=== PATIENT | female | born 1940 | race Caucasian/White ===

== ENCOUNTER → 2017-05-26 | Outpatient (CLI) | payer MEDICARE ==
[~2017-05-26] MED LIST: ASPI81CH PO; ATOR20 PO; ATOR40TA PO; DIPATR PO; FURO20 PO; META800 PO; METO50 PO; NITR.4SL SL; OMEP40CA12 PO; Omeprazole20 M1 PO; SERT100 PO; TRAM50 PO; Zofran Odt4 MG PO
== END ==
LOC: LAB EV 17:00
DX: L02.31 Cutaneous abscess of buttock (principal)
CPT/HCPCS: 87070; 87205

== ENCOUNTER 2017-06-05 05:44 | Observation (INO) | payer MEDICARE ==
[~2017-06-05] VITALS: Ht 177.8 cm; Wt 88.6 kg
[~2017-06-05 05:44] MED LIST changes: -ATOR40TA PO; -Omeprazole20 M1 PO
[2017-06-05 06:18] LABS: BASOPHILS ABSOLUTE AUTO 0.09 K/mm3 (0.00-0.23); BASOPHILS PERCENT AUTO 1 % (0-2); EOSINOPHILS ABSOLUTE AUTO 0.45 K/mm3 (0.00-0.68); EOSINOPHILS PERCENT AUTO 3 % (0-6); Hematocrit 40.6 % (33.0-51.0); Hemoglobin 13.4 g/dL (11.5-16.0); IMMATURE GRAN ABSOLUTE AUTO 0.04 K/mm3 (0.00-0.10); IMMATURE GRAN PERCENT AUTO 0 % (0-1); LYMPHOCYTES ABSOLUTE AUTO 2.48 K/mm3 (0.84-5.20); LYMPHOCYTES PERCENT AUTO 17 % (21-46); MONOCYTES ABSOLUTE AUTO 0.86 K/mm3 (0.16-1.47); MONOCYTES PERCENT AUTO 6 % (4-13); Mean Corpuscular HGB 29.8 pg (26.0-34.0); Mean Corpuscular Volume 90 fL (80-100); Mean Platelet Volume 10.5 fL (9.1-12.4); NEUTROPHILS ABSOLUTE AUTO 10.43 K/mm3 (1.96-9.15); NEUTROPHILS PERCENT AUTO 73 % (41-73); Platelet Count 268 K/mm3 (150-400); RDW Coefficient Variation 14.4 % (11.7-14.2); RDW Standard Deviation 47.8 fL (35.1-46.3); Red Blood Cell Count 4.49 M/mm3 (3.80-5.20); White Blood Cell Count 14.35 K/mm3 (4.00-11.30)
[2017-06-05 06:40] LABS: Alanine Aminotransfer (ALT/SGP 18 U/L (12-78); Albumin, Blood 2.8 g/dL (3.4-5.0); Albumin/Globulin Ratio 0.8 (0.8-1.8); Alk Phos 80 U/L (50-136); Anion Gap 6 mmol/L (6-16); Aspartate Aminotrans (AST/SGOT 20 U/L (12-37); Bilirubin, Total 0.4 mg/dL (0.1-1.0); Blood Urea Nitrogen 9 mg/dL (8-24); Bun/Creatinine Ratio 10.6 (12.0-20.0); CO2, Blood 26 mmol/L (21-32); Calcium, Blood 8.2 mg/dL (8.5-10.1); Chloride, Blood 111 mmol/L (98-108); Creatinine, Blood 0.85 mg/dL (0.40-1.00); Globulin, Blood 3.4 g/dL (2.2-4.0); Glomerular Filtration Rate >60 (60-); Glucose, Blood 103 mg/dL (70-99); Potassium, Blood 3.6 mmol/L (3.5-5.5); Sodium, Blood 143 mmol/L (136-145); Total Protein, Blood 6.2 g/dL (6.4-8.2); Troponin I <0.015 ng/mL (0.000-0.040)
[2017-06-05] MEDS ORDERED: FURO20 PO (06:59)
[2017-06-05] MEDS ORDERED: METO50 PO (07:01)
[2017-06-05] MEDS ORDERED: Omeprazole20 M1 PO (07:01)
[2017-06-05] MEDS ORDERED: TRAM50 PO (07:02)
[2017-06-06 05:09] LABS: BASOPHILS ABSOLUTE AUTO 0.06 K/mm3 (0.00-0.23); BASOPHILS PERCENT AUTO 1 % (0-2); EOSINOPHILS ABSOLUTE AUTO 0.17 K/mm3 (0.00-0.68); EOSINOPHILS PERCENT AUTO 2 % (0-6); Hematocrit 37.2 % (33.0-51.0); Hemoglobin 12.4 g/dL (11.5-16.0); IMMATURE GRAN ABSOLUTE AUTO 0.02 K/mm3 (0.00-0.10); IMMATURE GRAN PERCENT AUTO 0 % (0-1); LYMPHOCYTES ABSOLUTE AUTO 2.46 K/mm3 (0.84-5.20); LYMPHOCYTES PERCENT AUTO 33 % (21-46); MONOCYTES PERCENT AUTO 11 % (4-13); Mean Corpuscular HGB 29.8 pg (26.0-34.0); Mean Corpuscular HGB Conc 33.3 g/dL (31.5-36.5); Mean Corpuscular Volume 89 fL (80-100); Mean Platelet Volume 10.6 fL (9.1-12.4); NEUTROPHILS ABSOLUTE AUTO 3.97 K/mm3 (1.96-9.15); NEUTROPHILS PERCENT AUTO 53 % (41-73); Platelet Count 219 K/mm3 (150-400); RDW Coefficient Variation 14.3 % (11.7-14.2); RDW Standard Deviation 46.5 fL (35.1-46.3); Red Blood Cell Count 4.16 M/mm3 (3.80-5.20); White Blood Cell Count 7.48 K/mm3 (4.00-11.30)
[2017-06-06 06:10] LABS: Anion Gap 8 mmol/L (6-16); Blood Urea Nitrogen 10 mg/dL (8-24); Bun/Creatinine Ratio 12.7 (12.0-20.0); CO2, Blood 25 mmol/L (21-32); Chloride, Blood 112 mmol/L (98-108); Creatinine, Blood 0.79 mg/dL (0.40-1.00); Glomerular Filtration Rate >60 (60-); Glucose, Blood 90 mg/dL (70-99); Potassium, Blood 3.5 mmol/L (3.5-5.5); Sodium, Blood 145 mmol/L (136-145)
[2017-06-07] MEDS ORDERED: ASPI81CH PO (17:12)
[2017-06-07] MEDS ORDERED: ATOR40TA PO (17:14)
== END 2017-06-07 18:00 | disposition home or self-care (01) ==
LOC: ER 05:44 → MEDS 05:45 → ENPENDDIS 06-07 10:17 → MEDS 06-07 18:00
PROVIDERS: Emergency Medicine; Internal Medicine
DX: R07.9 Chest pain, unspecified (principal); I25.10 Atherosclerotic heart disease of native coronary artery without angina pectoris; F32.9 Major depressive disorder, single episode, unspecified; I50.30 Unspecified diastolic (congestive) heart failure; K21.9 Gastro-esophageal reflux disease without esophagitis; Z90.710 Acquired absence of both cervix and uterus; Z85.22 Personal history of malignant neoplasm of nasal cavities, middle ear, and accessory sinuses; Z90.49 Acquired absence of other specified parts of digestive tract; Z91.040 Latex allergy status; Z88.0 Allergy status to penicillin; Z88.2 Allergy status to sulfonamides; Z88.8 Allergy status to other drugs, medicaments and biological substances; Z79.899 Other long term (current) drug therapy; Z79.891 Long term (current) use of opiate analgesic
CPT/HCPCS: 36415; 71046; 78452; 80048; 80053; 83880; 84484; 85025; 93005; 93010; 93017; 96372; 96374; 96376; 99285; A9500; C9113; G0378; J0280; J1650; J2785

== ENCOUNTER → 2017-06-12 | Outpatient (CLI) | payer MEDICARE ==
[~2017-06-12] MED LIST changes: +ATOR40TA PO; +Omeprazole20 M1 PO
== END ==
LOC: PLD → LAB SHORT
DX: D48.5 Neoplasm of uncertain behavior of skin (principal)
CPT/HCPCS: 88305

== ENCOUNTER → 2019-01-22 | Outpatient (CLI) | payer MEDICARE | END | disposition home or self-care (01) | LOC: LAB SHORT 10:34 → LAB 10:34 | DX: L02.31 Cutaneous abscess of buttock (principal) | CPT/HCPCS: 87070; 87077; 87205 ==

== ENCOUNTER → 2019-03-13 | Outpatient (CLI) | payer MEDICARE | END | disposition home or self-care (01) | LOC: PLD 08:40 → LAB SHORT 08:40 | DX: D48.5 Neoplasm of uncertain behavior of skin (principal) | CPT/HCPCS: 88305 ==

== ENCOUNTER → 2019-06-27 | Outpatient (CLI) | payer MEDICARE | LOC: LAB EV 11:00 | DX: R31.21 Asymptomatic microscopic hematuria (principal); R30.0 Dysuria | CPT/HCPCS: 87077; 87086; 87186 ==

== ENCOUNTER → 2019-12-31 | Outpatient (CLI) | payer MEDICARE, OTHER | END | disposition home or self-care (01) | LOC: LAB SHORT 15:35 → LAB EV 15:35 | DX: J06.9 Acute upper respiratory infection, unspecified (principal); Z20.828 Contact with and (suspected) exposure to other viral communicable diseases | CPT/HCPCS: U0003 ==

== ENCOUNTER → 2020-10-28 | Outpatient (CLI) | payer MEDICARE ==
[2020-10-28 14:16] LABS: Microalbumin, Urine Quant. <5.000 mg/L (0.000-20.000); Protein, Urine Quantitative <5.0 mg/dL (0.0-11.9)
== END | disposition home or self-care (01) ==
LOC: LAB SHORT 07:30 → LAB 07:30
PROVIDERS: Internal Medicine Nephrology
DX: N18.30 Chronic kidney disease, stage 3 unspecified (principal); D63.1 Anemia in chronic kidney disease; N25.81 Secondary hyperparathyroidism of renal origin; E55.9 Vitamin D deficiency, unspecified; E78.00 Pure hypercholesterolemia, unspecified; D51.8 Other vitamin B12 deficiency anemias; D52.8 Other folate deficiency anemias; D50.9 Iron deficiency anemia, unspecified; N39.0 Urinary tract infection, site not specified; R76.9 Abnormal immunological finding in serum, unspecified; R94.5 Abnormal results of liver function studies; R94.6 Abnormal results of thyroid function studies
CPT/HCPCS: 81050; 82043; 82570; 84156; 87077; 87086; 87186

== ENCOUNTER 2022-04-08 03:14 | Emergency (ER) | payer MEDICARE ==
[~2022-04-08] VITALS: Ht 167.6 cm; Wt 142.9 kg
[2022-04-08 04:08] LABS: BASOPHILS ABSOLUTE AUTO 0.07 K/mm3 (0.00-0.23); BASOPHILS PERCENT AUTO 1 % (0-2); EOSINOPHILS ABSOLUTE AUTO 0.03 K/mm3 (0.00-0.68); EOSINOPHILS PERCENT AUTO 1 % (0-6); Hematocrit 44.1 % (33.0-51.0); Hemoglobin 14.7 g/dL (11.5-16.0); IMMATURE GRAN ABSOLUTE AUTO 0.02 K/mm3 (0.00-0.10); IMMATURE GRAN PERCENT AUTO 0 % (0-1); LYMPHOCYTES ABSOLUTE AUTO 1.17 K/mm3 (0.84-5.20); LYMPHOCYTES PERCENT AUTO 21 % (21-46); MONOCYTES ABSOLUTE AUTO 1.04 K/mm3 (0.16-1.47); MONOCYTES PERCENT AUTO 18 % (4-13); Mean Corpuscular HGB 30.4 pg (26.0-34.0); Mean Corpuscular HGB Conc 33.3 g/dL (31.5-36.5); Mean Corpuscular Volume 91 fL (80-100); NEUTROPHILS ABSOLUTE AUTO 3.38 K/mm3 (1.96-9.15); NEUTROPHILS PERCENT AUTO 59 % (41-73); Platelet Count 240 K/mm3 (150-400); RDW Coefficient Variation 14.4 % (11.7-14.2); RDW Standard Deviation 48.6 fL (35.1-46.3); Red Blood Cell Count 4.84 M/mm3 (3.80-5.20); White Blood Cell Count 5.71 K/mm3 (4.00-11.30)
[2022-04-08 04:25] LABS: Albumin, Blood 3.1 g/dL (3.4-5.0); Albumin/Globulin Ratio 0.8 (0.8-1.8); Bilirubin, Total 0.4 mg/dL (0.1-1.0); Calcium, Blood 8.8 mg/dL (8.5-10.1); Creatinine, Blood 0.9 mg/dL (0.40-1.00); Globulin, Blood 3.8 g/dL (2.2-4.0); Potassium, Blood 3.7 mmol/L (3.5-5.5); Total Protein, Blood 6.9 g/dL (6.4-8.2)
[2022-04-08 05:27] LABS: Influenza B, PCR NEGATIVE (NEGATIVE); Resp Syncytial Virus, PCR NEGATIVE (NEGATIVE); SARS-Cov-2 (COVID-19) PCR, MMC NEGATIVE (NEGATIVE)
[2022-04-08 06:11] LABS: Influenza A, PCR POSITIVE (NEGATIVE)
[2022-04-08] MEDS ORDERED: MYRBETRIQ50 MG PO (06:27)
[2022-04-08] MEDS ORDERED: ISOMON20 PO (06:27)
[2022-04-08] MEDS ORDERED: POTA10T PO (06:28)
[2022-04-08] MEDS ORDERED: OSEL75CA PO (06:33)
== END 2022-04-08 07:37 | disposition home or self-care (01) ==
LOC: ER 03:14
PROVIDERS: Student in an Organized Health Care Education/Training Program
DX: J10.1 Influenza due to other identified influenza virus with other respiratory manifestations (principal); J20.9 Acute bronchitis, unspecified; I50.9 Heart failure, unspecified; Z20.822 Contact with and (suspected) exposure to COVID-19; Z88.1 Allergy status to other antibiotic agents; Z88.0 Allergy status to penicillin; Z88.2 Allergy status to sulfonamides; Z91.040 Latex allergy status; Z91.048 Other nonmedicinal substance allergy status; Z79.899 Other long term (current) drug therapy; Z79.82 Long term (current) use of aspirin
CPT/HCPCS: 0241U; 36415; 71045; 80053; 83880; 84484; 85025; 93005; 93010; A9270

== ENCOUNTER → 2024-02-02 | Outpatient (CLI) | payer MEDICARE ==
[~2024-02-02] MED LIST changes: +ISOMON20 PO; +MYRBETRIQ50 MG PO; +OSEL75CA PO; +POTA10T PO
[2024-02-02 18:25] LABS: Adenovirus F 40/41 Not Detected (NOT DETECT); Astrovirus Not Detected (NOT DETECT); Campylobacter Sp Not Detected (NOT DETECT); Cryptosporidium Not Detected (NOT DETECT); Cyclospora Cayetanensis Not Detected (NOT DETECT); E. Coli O157 Not Detected (NOT DETECT); Entamoeba Histolytica Not Detected (NOT DETECT); Enteroaggregative E. coli-EAEC Not Detected (NOT DETECT); Enteropathogenic E. coli-EPEC Not Detected (NOT DETECT); Enterotoxigenic E. coli-ETEC Not Detected (NOT DETECT); Giardia Lamblia Not Detected (NOT DETECT); Norovirus GI/GII Not Detected (NOT DETECT); Plesiomonas Shigelloides Not Detected (NOT DETECT); Rotavirus A Not Detected (NOT DETECT); Salmonella Sp Not Detected (NOT DETECT); Sapovirus Not Detected (NOT DETECT); Shiga Toxin-prod E. coli-STEC Not Detected (NOT DETECT); Shigella/Enteroin E. coli-EIEC Not Detected (NOT DETECT); Vibrio Cholerae Not Detected (NOT DETECT); Vibrio Sp Not Detected (NOT DETECT); Yersinia Enterocolitica Not Detected (NOT DETECT)
== END | disposition home or self-care (01) ==
LOC: LAB 11:30 → LAB SHORT 11:30
PROVIDERS: Family Medicine
DX: R19.7 Diarrhea, unspecified (principal)
CPT/HCPCS: 87507

== ENCOUNTER → 2024-02-28 | Outpatient (CLI) | payer MEDICARE | LOC: LAB SHORT 16:26 → LAB 16:26 | DX: N39.0 Urinary tract infection, site not specified (principal) | CPT/HCPCS: 87086 ==

== ENCOUNTER 2024-07-09 12:23 | Day surgery (SDC) | payer MEDICARE ==
[~2024-07-09] VITALS: Ht 160 cm; Wt 92.9 kg
[~2024-07-09 12:23] MED LIST changes: +Atropine Sulfate 0.1 MG/ML 10ML SYR ONE; +Glycopyrrolate 0.2 MG/ML 1MLVIAL ONE; +Lactated Ringer's 1,000 ML IV ONE; +Lidocaine 2% 5 ML SDV ONE; +Lidocaine HCl/Pf 1% 5 ML VIAL ONE; +Ondansetron HCl 2 MG / ML 2ML Vial ONE; +ePHEDrine Sulfate 50 MG/ML 1ML Injection ONE
[2024-07-09] MEDS ORDERED: Bentyl20 MG (13:59)
[2024-07-09] MEDS ORDERED: Metoclopramide HCl 5MG / ML 2ML Vial ONE (14:27)
[2024-07-09] MEDS ORDERED: Famotidine 10 MG/ML 2ML Vial ONE (14:27)
[2024-07-09] MEDS ORDERED: Phenylephrine HCl 10mg/ml 1 ml Vial ONE (14:53)
[2024-07-09] MEDS ORDERED: propofoL 50 ML IV ONE (14:53)
[2024-07-09] MEDS ORDERED: Lactated Ringer's 1,000 ML IV ONE (14:56)
[2024-07-09 16:26] VITALS: BP 138/82
== END 2024-07-09 16:32 | disposition home or self-care (01) ==
LOC: ORSCSDS 12:23
PROVIDERS: Internal Medicine Gastroenterology
PROC: 0DB98ZX Excision of Duodenum, Via Natural or Artificial Opening Endoscopic, Diagnostic (ICD-10-PCS; principal; 2024-07-09 14:15)
PROC: 0DB78ZX Excision of Stomach, Pylorus, Via Natural or Artificial Opening Endoscopic, Diagnostic (ICD-10-PCS; principal; 2024-07-09 14:15)
PROC: 0DBL8ZX Excision of Transverse Colon, Via Natural or Artificial Opening Endoscopic, Diagnostic (ICD-10-PCS; principal; 2024-07-09 14:15)
PROC: 0DBE8ZX Excision of Large Intestine, Via Natural or Artificial Opening Endoscopic, Diagnostic (ICD-10-PCS; principal; 2024-07-09 14:15)
PROC: 0DBM8ZX Excision of Descending Colon, Via Natural or Artificial Opening Endoscopic, Diagnostic (ICD-10-PCS; principal; 2024-07-09 14:15)
PROC: 0DBK8ZX Excision of Ascending Colon, Via Natural or Artificial Opening Endoscopic, Diagnostic (ICD-10-PCS; principal; 2024-07-09 14:15)
DX: R19.7 Diarrhea, unspecified (principal); K21.9 Gastro-esophageal reflux disease without esophagitis; R11.0 Nausea; K31.7 Polyp of stomach and duodenum; D12.4 Benign neoplasm of descending colon; D12.2 Benign neoplasm of ascending colon; D12.3 Benign neoplasm of transverse colon; K29.60 Other gastritis without bleeding; Z86.0101 Personal history of adenomatous and serrated colon polyps; G47.33 Obstructive sleep apnea (adult) (pediatric); R10.32 Left lower quadrant pain; I25.10 Atherosclerotic heart disease of native coronary artery without angina pectoris; E78.5 Hyperlipidemia, unspecified; I10 Essential (primary) hypertension; Z79.899 Other long term (current) drug therapy; E66.9 Obesity, unspecified; Z68.38 Body mass index [BMI] 38.0-38.9, adult; J44.89 Other specified chronic obstructive pulmonary disease
CPT/HCPCS: 88305; 88342; J0461; J2003; J2371; J2405; J2704; J2765; J7120

== ENCOUNTER 2024-09-08 12:51 | Inpatient (IN) | payer MEDICARE ==
[~2024-09-08] VITALS: Ht 157.5 cm; Wt 94.2 kg
[~2024-09-08 12:51] MED LIST changes: -Atropine Sulfate 0.1 MG/ML 10ML SYR ONE; +Bentyl20 MG; -Glycopyrrolate 0.2 MG/ML 1MLVIAL ONE; -Lactated Ringer's 1,000 ML IV ONE; -Lidocaine 2% 5 ML SDV ONE; -Lidocaine HCl/Pf 1% 5 ML VIAL ONE; +METO100 PO; +OMEP20ER PO; -Omeprazole20 M1 PO; -Ondansetron HCl 2 MG / ML 2ML Vial ONE; -ePHEDrine Sulfate 50 MG/ML 1ML Injection ONE
[2024-09-08 14:13] LABS: Albumin/Globulin Ratio 0.9 (0.8-1.8); BASOPHILS ABSOLUTE AUTO 0.01 K/mm3 (0.00-0.23); BASOPHILS PERCENT AUTO 0 % (0-2); Bilirubin, Total 0.7 mg/dL (0.1-1.0); Bun/Creatinine Ratio 23.9 (12.0-20.0); Calcium, Blood 8.3 mg/dL (8.5-10.1); Creatinine, Blood 0.75 mg/dL (0.40-1.00); EOSINOPHILS ABSOLUTE AUTO 0.05 K/mm3 (0.00-0.68); EOSINOPHILS PERCENT AUTO 1 % (0-6); Globulin, Blood 3.3 g/dL (2.2-4.0); Hematocrit 43.7 % (33.0-51.0); Hemoglobin 14.4 g/dL (11.5-16.0); IMMATURE GRAN ABSOLUTE AUTO 0.03 K/mm3 (0.00-0.10); IMMATURE GRAN PERCENT AUTO 0 % (0-1); LYMPHOCYTES ABSOLUTE AUTO 2.12 K/mm3 (0.84-5.20); LYMPHOCYTES PERCENT AUTO 30 % (21-46); MONOCYTES ABSOLUTE AUTO 0.69 K/mm3 (0.16-1.47); MONOCYTES PERCENT AUTO 10 % (4-13); Mean Corpuscular HGB 30.1 pg (26.0-34.0); Mean Corpuscular Volume 91 fL (80-100); Mean Platelet Volume 10.9 fL (9.1-12.4); NEUTROPHILS ABSOLUTE AUTO 4.27 K/mm3 (1.96-9.15); NEUTROPHILS PERCENT AUTO 60 % (41-73); Platelet Count 292 K/mm3 (150-400); Potassium, Blood 4.3 mmol/L (3.5-5.5); RDW Coefficient Variation 14.6 % (11.7-14.2); RDW Standard Deviation 49.4 fL (35.1-46.3); Red Blood Cell Count 4.78 M/mm3 (3.80-5.20); Total Protein, Blood 6.3 g/dL (6.4-8.2); White Blood Cell Count 7.17 K/mm3 (4.00-11.30)
[2024-09-08] MEDS ORDERED: NS 1,000 ML IV SCH (16:00)
[2024-09-08] MEDS ORDERED: Aspirin 81 MG Chew PO ONE (16:30)
[2024-09-08] MEDS ORDERED: ACET325 PO (16:50)
[2024-09-08] MEDS ORDERED: LOW DOSE ASPIRI81 M1 PO (16:52)
[2024-09-08] MEDS ORDERED: ISOSORBIDE MONO30 MG PO (16:52)
[2024-09-08] MEDS ORDERED: METO100ER PO (16:53)
[2024-09-08 19:59] VITALS: BP 129/66
[2024-09-08] MEDS ORDERED: FLU VACC TS2024-25(6MOS UP)/PF 45 MCG/0.5 ML SYRINGE IM SCH (20:05)
--- NOTE | 2024-09-08 21:24 | NUR ---
CAROLE SUMMARY: PT AOX4, MOVED FROM ED. SLID FROM GURNEY TO BED. PLEASANT MOOD AND AFFECT. PURE WICK IN PLACE. PT ORIENTED TO ROOM, BED IN LOWEST POSITION, CALL LIGHT IN REACH. CONTINUING CARE.
[2024-09-09 00:12] VITALS: BP 146/60
--- NOTE | 2024-09-09 04:30 | NUR ---
SHIFT SUMMARY: PT AOX4, CALLS APPROPRIATELY ABLE TO MAKE NEEDS KNOWN. COOPERATIVE IN CARE. CLAIMS MIXED CONTINENCE AND SAID SHE'LL CALL IF SHE NEEDS TO VOID SO WE CAN COLLECT SAMPLE. ER REPORTED L SIDED DEFICITS AND PT ENDORSED WHEN SHE ARRIVED HAVING, BUT NO DEFICITS NOTICED ON ADMIT. PT WEAK BLE BUT STATES THAT IS BASE LINE. STILL HAS NOT BEEN UP OR TRANSFERRED BUT IS ABLE TO ASSIST ROLLING IN BED WELL. PT IN BED, BED IN LOWEST POSITION, CALL LIGHT IN REACH. CONTINUING CARE.
[2024-09-09 04:40] VITALS: BP 139/88
[2024-09-09 06:35] LABS: Albumin, Blood 2.9 g/dL (3.4-5.0); Bilirubin, Total 0.4 mg/dL (0.1-1.0); Calcium, Blood 8.4 mg/dL (8.5-10.1); Creatinine, Blood 0.76 mg/dL (0.40-1.00); Total Protein, Blood 5.9 g/dL (6.4-8.2)
[2024-09-09 07:25] VITALS: BP 140/75
[2024-09-09] MEDS ORDERED: Enoxaparin 40 MG/0.4 ML SYR SC SCH (09:00)
[2024-09-09 11:37] VITALS: BP 144/68
[2024-09-09] MEDS ORDERED: Acetaminophen 325 MG TABLET PO PRN (13:20)
[2024-09-09 16:43] VITALS: BP 137/73
--- NOTE | 2024-09-09 17:22 | NUR ---
A&Ox4, LIMITED CODE MEDICATIONS ONLY, ON TELE, REPORTED SOME PAIN TODAY BUT FELT BETTER AFTER MEDICATION WAS GIVEN, GRANDDAUGHTER AT BEDSIDE MOST OF THE DAY, PUREWIC IN PLACE, MRI TODAY CAME BACK NEGATIVE FOR CVA, SPPECH THERAPY CONSULT- POSSIBLE BETIUM SWALLOW STUDY TOMORROW, DIET ORDERS IN CHART & ON DOOR, PHYSICAL THERAPY CONSULT- WEAK ON LEFT SIDE, 2 PERSON ASSIST & ABLE TO USE WALKER TO BATHROOM, AWAITING DOCTOR UPDATE.
--- NOTE | 2024-09-09 18:17 | NUR ---
REVIEWED CHARTING ENTERED BY JESSE BYNUM AND I AGREE WITH HER DOCUMENTATION ON THIS PATIENT.
[2024-09-09 19:44] VITALS: BP 135/69
[2024-09-10] VITALS (9 sets, daily range): BP systolic 113–155; BP diastolic 62–122
[2024-09-10 00:44] LABS: Source, Urine Clean Catch
[2024-09-10 00:45] LABS: Bilirubin, Urine Neg (Neg); Blood, Urine Neg (Neg); Glucose Qualitative, Urine Neg (Neg); Ketones, Urine Neg (Neg); Leukocyte Esterase, Urine Neg (Neg); Nitrite, Urine Neg (Neg); Protein, Urine Neg (Neg); Urobilinogen, Urine NORM (Normal)
[2024-09-10 00:51] LABS: Appearance, Urine Clear (Clear); Color, Urine Yellow (P-Yellow)
--- NOTE | 2024-09-10 04:35 | NUR ---
SHIFT SUMMARY: PT AOX4 WITH SOME FORGETFULLNESS, AND EXPRESSIVE APHASIA. PT EXPERIENCING A VERTIGO LIKE SYMPTOMS COMPLAINING THAT THE ROOM WAS SPINNING WHILE SHE ATTEMPTED TO USE THE BSC. STATES FEELING WEAK AND THAT HER BODY IS TIRED. HAD AN EMOTIONAL OUTBURST BUT VENTED AND WAS ABLE TO CALM HERSELF DOWN. THE FURTHER LOSS OF INDEPENDENCE SEEMS TO BE TAKING AN EMTOTIONAL TOLL. PT AND FAMILY WERE WAITING FOR FINAL RESULTS FROM SCAN TO BE GONE OVER WITH THEM BY PROVIDER. PROVIDER AWARE AND AWAITING FINAL RESULTS. FAMILY ACCEPTING OF THAT. PT CALLS APPROPRIATELY AND ABLE TO MAKE NEEEDS KNOWN. PUREWICK IN PLACE. PT IN BED, BED IN LOWEST POSITION, CALL LIGHT IN REACH. CONTINUING CARE.
[2024-09-10 07:45] LABS: BASOPHILS ABSOLUTE AUTO 0.02 K/mm3 (0.00-0.23); BASOPHILS PERCENT AUTO 0 % (0-2); EOSINOPHILS ABSOLUTE AUTO 0.15 K/mm3 (0.00-0.68); EOSINOPHILS PERCENT AUTO 2 % (0-6); Hematocrit 43.7 % (33.0-51.0); Hemoglobin 14.8 g/dL (11.5-16.0); IMMATURE GRAN ABSOLUTE AUTO 0.03 K/mm3 (0.00-0.10); IMMATURE GRAN PERCENT AUTO 0 % (0-1); LYMPHOCYTES ABSOLUTE AUTO 2.24 K/mm3 (0.84-5.20); LYMPHOCYTES PERCENT AUTO 26 % (21-46); MONOCYTES ABSOLUTE AUTO 0.78 K/mm3 (0.16-1.47); MONOCYTES PERCENT AUTO 9 % (4-13); Mean Corpuscular HGB 30.6 pg (26.0-34.0); Mean Corpuscular HGB Conc 33.9 g/dL (31.5-36.5); Mean Corpuscular Volume 91 fL (80-100); Mean Platelet Volume 10.9 fL (9.1-12.4); NEUTROPHILS ABSOLUTE AUTO 5.46 K/mm3 (1.96-9.15); NEUTROPHILS PERCENT AUTO 63 % (41-73); Platelet Count 284 K/mm3 (150-400); RDW Coefficient Variation 14.6 % (11.7-14.2); RDW Standard Deviation 48.5 fL (35.1-46.3); Red Blood Cell Count 4.83 M/mm3 (3.80-5.20); White Blood Cell Count 8.68 K/mm3 (4.00-11.30)
[2024-09-10 08:00] LABS: Albumin, Blood 2.9 g/dL (3.4-5.0); Albumin/Globulin Ratio 0.9 (0.8-1.8); Bilirubin, Total 0.6 mg/dL (0.1-1.0); Bun/Creatinine Ratio 21.5 (12.0-20.0); Calcium, Blood 8.9 mg/dL (8.5-10.1); Creatinine, Blood 0.74 mg/dL (0.40-1.00); Globulin, Blood 3.2 g/dL (2.2-4.0); Potassium, Blood 4.2 mmol/L (3.5-5.5); Total Protein, Blood 6.1 g/dL (6.4-8.2)
[2024-09-10] MEDS ORDERED: TraMADol HCl 50 MG Tab PO PRN (13:15)
[2024-09-10] MEDS ORDERED: Nitroglycerin 0.4 MG SUBL SL PRN (13:20)
[2024-09-10] MEDS ORDERED: Metoprolol Succinate 50 MG TABCR PO SCH ×2 (14:00→21:00)
[2024-09-10] MEDS ORDERED: Trospium Chloride 20 MG Tab PO SCH (16:30)
[2024-09-11 04:29] VITALS: BP 146/82
--- NOTE | 2024-09-11 04:46 | NUR ---
SHIFT SUMMARY: PT AOX4, 2PA COMPLAINS OF SEVERE DIZZINESS UPON AMBULATION. IN A MUCH BETTER MOOD THAN NIGHT BEFORE. ANXIOUS ABOUT FUTURE TREATMENT PLANS AND WHAT IT WILL MEAN FOR HER INDEPENDENCE. PT TOLERATING MEDS AND DIET WELL. NO COMPLAINTS OF ANY STROKE SYMPTOMS OR DYSPHASIA. NO ACUTE EVENTS OVERNIGHT. PT IN BED SLEEPING, BED IN LOWEST POSITION, CALL LIGHT IN REACH. CONTINUING CARE.
[2024-09-11] MEDS ORDERED: Omeprazole 20 MG CapCR PO SCH (06:00)
[2024-09-11 07:14] VITALS: BP 118/69
[2024-09-11] MEDS ORDERED: Isosorbide Mononitrate 60 MG TABCR PO SCH (09:00)
[2024-09-11] MEDS ORDERED: Aspirin 81 MG TabEC PO SCH (09:00)
[2024-09-11] MEDS ORDERED: Furosemide 40 MG Tab PO SCH (09:00)
[2024-09-11] MEDS ORDERED: Atorvastatin 40 MG Tab PO SCH (09:00)
[2024-09-11 11:19] VITALS: BP 126/66
--- NOTE | 2024-09-11 13:49 | NUR ---
PATIENT DC'D TO [facility], REPORTS CALLED TO NURSE VICKIE. DC PACKET SENT WITH FACILITIES ADMINISTRATOR ALONG WITH HARD SCRIPT FOR TRAMADOL. PATIENT SENT WITH BELONGINGS. PATIENT DENIES ANY FURTHER QUESTIONS OR CONCERNS.
== END 2024-09-11 13:34 | DRG 92 ==
LOC: ER 12:51 → MEDS 17:51
PROVIDERS: Internal Medicine; Physician Assistant; ADMIT Internal Medicine Endocrinology, Diabetes & Metabolism
DX: R27.0 Ataxia, unspecified (principal); I13.0 Hypertensive heart and chronic kidney disease with heart failure and stage 1 through stage 4 chronic kidney disease, or unspecified chronic kidney disease; I67.82 Cerebral ischemia; R29.810 Facial weakness; R27.8 Other lack of coordination; R41.82 Altered mental status, unspecified; Z66 Do not resuscitate; M19.90 Unspecified osteoarthritis, unspecified site; G89.29 Other chronic pain; I50.9 Heart failure, unspecified; R29.705 NIHSS score 5; E66.9 Obesity, unspecified; N18.31 Chronic kidney disease, stage 3a; I25.10 Atherosclerotic heart disease of native coronary artery without angina pectoris; E55.9 Vitamin D deficiency, unspecified; G47.33 Obstructive sleep apnea (adult) (pediatric); R47.02 Dysphasia; R13.10 Dysphagia, unspecified; Z88.0 Allergy status to penicillin; Z88.2 Allergy status to sulfonamides; Z91.040 Latex allergy status; Z91.048 Other nonmedicinal substance allergy status; Z88.8 Allergy status to other drugs, medicaments and biological substances; Z88.1 Allergy status to other antibiotic agents; Z79.899 Other long term (current) drug therapy; Z90.49 Acquired absence of other specified parts of digestive tract; Z87.19 Personal history of other diseases of the digestive system; Z90.710 Acquired absence of both cervix and uterus; Z98.890 Other specified postprocedural states; Z98.41 Cataract extraction status, right eye; Z98.42 Cataract extraction status, left eye; Z90.89 Acquired absence of other organs; Z85.828 Personal history of other malignant neoplasm of skin; Z79.82 Long term (current) use of aspirin; Z68.39 Body mass index [BMI] 39.0-39.9, adult
CPT/HCPCS: 36415; 70450; 70551; 74230; 80053; 81003; 85025; 92610; 92611; 93005; 93010; 94762; 96360; 97110; 97112; 97116; 97162; 97165; 97530; 99285-25; A9270; J1650; J7030